=== PATIENT | female | born 1965 | race Caucasian/White ===

== ENCOUNTER 2017-11-30 08:46 | Emergency (ER) | payer BC ==
--- NOTE | 2017-11-30 09:25 | ED Physician Documentation ---
PD HPI FOCAL NEURO - Stated complaint Stated Complaint: FACIAL NUMBNESS - Chief complaint Chief Complaint: Neuro - History obtained from History obtained from: Patient - History of Present Illness Timing - onset: Yesterday Timing - details: Still present Severity of deficit: Mild Numbness: Face, Hand, Left Associated symptoms: Headache (mild retro-orbital). No: Nausea / vomiting, Head injury Baseline status: positive: A&OX3, ambulatory, indep Similar symptoms before: Has not had sx before - Additional information Additional information: The patient is a 52-year-old female who presents with left facial numbness that she first noticed when she awoke yesterday morning. She attributed it to sleeping on her face. However this morning she continues to have slight numbness on the left side of her face. She has also become aware of clumsiness with her left hand. This morning she dropped soap from her left hand while in the shower. She denies any difficulty speaking but has noticed mild difficulty formulating her thoughts. She denies any difficulty walking. On further review of systems she reports heartburn recently for which she has been using Tums. She reports some mild retro-orbital headache, and a feeling of fatigue. She denies fever, nausea or vomiting. She does report vague urinary discomfort over the past week. She denies history of similar symptoms in the past. Review of Systems Constitutional: reports: Fatigue. denies: Fever Eyes: denies: Decreased vision Ears: denies: Tinnitus/ringing Nose: denies: Congestion Throat: denies: Sore throat Cardiac: denies: Chest pain / pressure, Palpitations Respiratory: denies: Dyspnea, Cough GI: denies: Abdominal Pain, Nausea, Vomiting : reports: Dysuria Skin: denies: Rash Musculoskeletal: denies: Back pain, Extremity pain Neurologic: reports: Numbness, Headache. denies: Focal weakness PD PAST MEDICAL HISTORY - Past Medical History Cardiovascular: None Respiratory: Asthma Neuro: Head injury Endocrine/Autoimmune: None GI: Diverticulitis - Past Surgical History Other past surgical history: Diaphragmatic hernia repair - Present Medications Home Medications: Ambulatory Orders Medication Instructions Recorded Confirmed Cyclobenzaprine [Flexeril] 10 mg PO DAILY PM 11/30/17 Gabapentin 11/30/17 - Allergies Allergies/Adverse Reactions: Allergies Allergy/AdvReac Type Severity Reaction Status Date / Time No Known Drug Allergies Allergy Verified 11/30/17 09:00 - Social History Does the pt smoke?: No Smoking Status: Never smoker PD ED PE NORMAL - Vitals Vital signs reviewed: Yes (Mild hypertension initially.) - General General: Alert and oriented X 3, Well developed/nourished - HEENT HEENT: Atraumatic, PERRL, EOMI, Moist mucous membranes, Pharynx benign - Neck Neck: Supple, no meningeal sign, No adenopathy, No JVD - Cardiac Cardiac: RRR, No murmur - Respiratory Respiratory: No respiratory distress - Abdomen Abdomen: Soft, Non tender, Other (Rotund abdomen.) - Back Back: No CVA TTP - Derm Derm: No rash - Extremities Extremities: No edema, No calf tenderness / cord - Neuro Neuro: Alert and oriented X 3, No motor deficit, Normal speech, Other (Very mild decreased light touch sensation on the left side of the face, with sparing of the forehead. There is very mild decreased light touch sensation on the left hand compared to the right. No focal motor deficit detected.) Eye Opening: Spontaneous Motor: Obeys Commands Verbal: Oriented GCS Score: 15 NIHSS - Time Time: 09:10 - Level of Consciousness Level of consciousness: (0) Alert, Keenly responsive LOC Questions: (0) Answers both Q's correct LOC Commands: (0) Performs both correctly - Gaze Best Gaze: (0) Normal - Visual Visual: (0) No loss - Facial Palsy Facial Palsy: (0) Normal, symmetrical movement - Motor Arms (both separate) Motor Arm (right): (0) No drift Motor Arm (left): (0) No drift - Motor Legs (both separate) Motor Leg (right): (0) No drift Motor Leg (left): (0) No drift - Limb Ataxia Limb Ataxia: (0) Absent - Sensory Sensory: (1) Vovt-ca-xvlaoxky loss - Best Language Best Language: (0) No aphasia - Dysarthria Dysarthria: (0) Normal - Extinction and Inattention (formally neg Extinction and inattention: (0) No abnormality - Total Score/Results Total Score/Result: 1 Results - Vitals Vitals: Vital Signs - 24 hr 11/30/17 11:21 Heart Rate 81 Respiratory 18 Rate Blood Pressure 136/97 H O2 Saturation 100 Oxygen O2 Source Room air - Labs Labs: Laboratory Tests 11/30/17 11/30/17 11/30/17 09:10 09:38 09:38 WBC 6.5 RBC 5.43 H Hgb 15.3 Hct 43.2 MCV 79.6 L MCH 28.2 MCHC 35.5 RDW 13.3 Plt Count 337 MPV 7.4 L Neut # 4.0 Lymph # 1.8 [place] # 0.3 Eos # 0.1 Baso # 0.2 H Absolute Nucleated RBC 0.00 Nucleated RBC % 0.1 Sodium 138 Potassium 3.6 Chloride 100 L Carbon Dioxide 26 Anion Gap 12.0 BUN 11 Creatinine 0.6 Estimated GFR (MDRD) 105 Glucose 102 H Calcium 9.5 Total Bilirubin 0.6 AST 25 ALT 30 Alkaline Phosphatase 87 Total Protein 8.3 H Albumin 4.3 Globulin 4.0 Albumin/Globulin Ratio 1.1 Lipase 26 Urine Color YELLOW Urine Clarity CLEAR Urine pH 6.0 Ur Specific [place] 1.025 Urine Protein NEGATIVE Urine Glucose (UA) NEGATIVE Urine Ketones NEGATIVE Urine Occult Blood TRACE-INTA Urine Nitrite NEGATIVE Urine Bilirubin NEGATIVE Urine Urobilinogen 0.2 (NORMAL) Ur Leukocyte Esterase NEGATIVE Ur Microscopic Review NOT INDICATED Urine Culture Comments NOT INDICATED - Rads (name of study) Head CT Radiology: Prelim report reviewed, EMP read contemporaneously, See rad report ( Negative noncontrast brain CT. No intracranial hemorrhage, obvious mass, or CT signs of acute infarct.) PD MEDICAL DECISION MAKING - ED course Complexity details: reviewed old records, reviewed results, re-evaluated patient , considered differential, d/w patient ED course: The patient presents with mild left facial and upper extremity paresthesia that started more than 24 hours prior to arrival. Head CT reveals no intracranial abnormality, including no hemorrhage or mass effect. Interestingly, the patient 's symptoms cleared while in the emergency department. TIA versus CVA remains a consideration, but I think MS is a more likely consideration. In further discussion with the patient, she advises that MS has been considered by physicians in the past, and she has undergone workup for MS at [facility] in the past. Treatment in the emergency department included administration of one baby aspirin orally. I discussed with her the results of her workup, the importance of outpatient follow-up, and advised that she discuss further workup for MS with her primary physician. I also discussed with her potentially worrisome signs or symptoms that should prompt reevaluation in the department. Departure - Departure Disposition: 01 Home, Self Care Clinical Impression: Left facial numbness Condition: Stable Instructions: ED Paraesthesias Follow-Up: Aracely Gallo PA-C [Primary Care Provider] - Comments: Take 1 baby aspirin daily. Follow up with your primary physician. Call to schedule an appointment. Return to the emergency department if you develop increasing headache, increasing numbness or weakness, or otherwise worsening symptoms. Discharge Date/Time: 11/30/17 11:35
[2017-11-30 10:00] LABS: BASOPHILS # (AUTO) 0.2 10^3/uL (0.0-0.1); BASOPHILS % (AUTO) 3.1 %; EOSINOPHILS # (AUTO) 0.1 10^3/uL (0.0-0.7); EOSINOPHILS % (AUTO) 1.9 %; HGB - HEMOGLOBIN 15.3 g/dL (12.0-16.0); LYMPHOCYTES # (AUTO) 1.8 10^3/uL (1.5-3.5); LYMPHOCYTES % (AUTO) 28.2 %; MEAN CORPUSCULAR HEMOGLOBIN 28.2 pg (27.0-31.0); MEAN CORPUSCULAR HGB CONC 35.5 g/dL (32.0-36.0); MEAN CORPUSCULAR VOLUME 79.6 fL (81.0-99.0); MEAN PLATELET VOLUME 7.4 fL (7.9-10.8); MONOCYTES # (AUTO) 0.3 10^3/uL (0.0-1.0); MONOCYTES % (AUTO) 4.6 %; NEUTROPHILS % (AUTO) 62.2 %; PLT - PLATELET COUNT 337 10^3/uL (130-450); RED BLOOD COUNT 5.43 10^6/uL (4.20-5.40); RED CELL DISTRIBUTION WIDTH 13.3 % (12.0-15.0); WHITE BLOOD COUNT 6.5 x10^3/uL (4.8-10.8)
[2017-11-30 10:02] LABS: BILIRUBIN,URINE NEGATIVE (NEGATIVE); GLUCOSE, URINE (UA) NEGATIVE (NEGATIVE); KETONES,URINE (UA) NEGATIVE (NEGATIVE); LEUKOCYTE ESTERASE, URINE NEGATIVE (NEGATIVE); NITRITE,URINE NEGATIVE (NEGATIVE); OCCULT BLOOD,URINE TRACE-INTA (NEGATIVE); PROTEIN,URINE NEGATIVE (NEGATIVE); UROBILINOGEN,URINE 0.2 (NORMAL) E.U./dL (NORMAL)
[2017-11-30 10:04] LABS: CLARITY,URINE CLEAR (CLEAR)
[2017-11-30 10:14] LABS: ALBUMIN 4.3 g/dL (3.2-5.5); ALBUMIN/GLOBULIN RATIO 1.1 (1.0-2.2); BILIRUBIN,TOTAL 0.6 mg/dL (0.2-1.0); CALCIUM 9.5 mg/dL (8.5-10.3); CREATININE 0.6 mg/dL (0.4-1.0); TOTAL PROTEIN 8.3 g/dL (6.7-8.2)
--- NOTE | 2017-11-30 10:21 | CT Report ---
EXAM: CT HEAD EXAM DATE: 11/30/2017 10:00 AM. CLINICAL HISTORY: Left facial numbness. Disoriented and confused. COMPARISON: None. TECHNIQUE: Multiaxial CT images were obtained from the foramen magnum to the vertex. Reformats: Coron al. IV contrast: None. In accordance with CT protocol optimization, one or more of the following dose reduction techniques w ere utilized for this exam: automated exposure control, adjustment of mA and/or KV based on patient s ize, or use of iterative reconstructive technique. FINDINGS: Parenchyma: No intraparenchymal hemorrhage. No focal mass effect, midline shift, or CT findings of ac kimi infarction. Strauss-white differentiation is distinct. Extraaxial Spaces: Normal. No subdural or epidural collections identified. Ventricles: Normal in size and position. Tip cisterna magna, an anatomic variant. Sinuses and Orbits: Imaged paranasal sinuses, orbits, and mastoids show no significant abnormality. Bones: No evidence of fracture or calvarial defect. IMPRESSION: 1. Negative noncontrast brain CT. No intracranial hemorrhage, obvious mass, or CT signs of acute infa rct. [facility] Referring Provider Line: [phone] SITE ID: [id number]
[2017-11-30] MEDS ORDERED: ASPIRIN CHEW 81 MG TABLET PO STA (11:05)
[2017-11-30 11:22] VITALS: BP 136/97
== END 2017-11-30 11:35 | disposition home or self-care (01) ==
LOC: ED 08:46
DX: R20.0 Anesthesia of skin (principal); R51 Headache; J45.909 Unspecified asthma, uncomplicated
CPT/HCPCS: 36415; 70450; 80053; 81003; 83690; 85025; 99284; A9270; 81001; 87086

== ENCOUNTER 2017-12-12 10:08 | Outpatient (CLI) | payer BC ==
[2017-12-12 14:03] LABS: RHEUMATOID FACTOR NEGATIVE (Negative)
[2017-12-14 13:52] LABS: ANA SCREEN NEGATIVE (NEGATIVE)
== END 2017-12-12 10:09 | disposition home or self-care (01) ==
LOC: LAB.R 10:08
PROVIDERS: ATTEND Physician Assistant Medical
DX: M25.50 Pain in unspecified joint (principal)
CPT/HCPCS: 85651; 86038; 86140; 86430

== ENCOUNTER 2017-12-24 08:22 | Outpatient (CLI) | payer BC ==
--- NOTE | 2017-12-25 08:48 | Ultrasound Report ---
CAROTID DUPLEX: 12/24/2017 CLINICAL INDICATION: Paresthesias. TECHNIQUE: Real-time sonographic vascular imaging was performed by the roadability machine operator through the carotid arteries utilizing both color-flow and Doppler spectral analysis. Multiple retail wireless sales representative static images were saved for review. RIGHT Vessel PSV cm/sec EDV cm/sec ICA/CCA RSV Ratio Degree of Stenosis Plaque Estimate % RCCA Prox 64 RCCA Dist 94 30 RECA 74 RT BULB 56 26 0.59 BHAKTI Prox 61 20 0.64 BHAKTI Mid 57 26 0.60 BHAKTI Dist 112 49 1.19 RVA 58 RVA flow direction: Antegrade LEFT Vessel PSV cm/sec EDV cm/sec ICA/CCA RSV Ratio Degree of Stenosis Plaque Estimate % LCCA Prox 85 LCCA Dist 64 26 LECA --- LFT BULB 54 19 0.84 LICA Prox 74 38 1.15 LICA Mid 96 41 1.50 LICA Dist 97 42 1.51 LVA 56 LVA flow direction: Antegrade Velocity criteria are extrapolated from diameter data as defined by the Society of Radiologists in Ultrasound Consensus Conference Radiology 2003; 229; 340-346. Degree of Stenosis % ICA PSV cm/sec ICA EDV cm/sec ICA/CCA PSV Ratio Plaque Estimate % Normal < 125 < 40 < 2.0 None <50 < 125 <40 < 2.0 < 50 50-69 125-130 40-100 2.0-4.0 >/=50 >/=70 but less than near occlusion > 230 > 100 > 4.0 >/=50 Near occlusion High, low or undetectable Variable Variable Visible Total occlusion Undetectable Not applicable Not applicable No detectable lumen FINDINGS: RIGHT: There is mild plaquing in the right carotid bifurcation, without evidence of a focal hemodynamically significant stenosis. LEFT: There is moderate plaquing in the left carotid bifurcation. The left internal carotid artery is tortuous, but there is no evidence of a focal hemodynamically significant stenosis. Incidental note is made of occlusion of the left external carotid artery. The vertebral arteries demonstrate antegrade flow bilaterally. IMPRESSION: NO EVIDENCE OF A HEMODYNAMICALLY SIGNIFICANT INTERNAL CAROTID STENOSIS. MTDD
== END 2017-12-24 08:23 | disposition home or self-care (01) ==
LOC: DI 08:22
PROVIDERS: ATTEND Physician Assistant Medical
DX: R20.2 Paresthesia of skin (principal)
CPT/HCPCS: 93306; 93880

== ENCOUNTER 2018-11-07 15:35 | Outpatient (CLI) | payer BC ==
[2018-11-07 18:18] LABS: BASOPHILS # (AUTO) 0.1 10^3/uL (0.0-0.1); BASOPHILS % (AUTO) 0.7 %; BILIRUBIN,URINE NEGATIVE (NEGATIVE); EOSINOPHILS # (AUTO) 0.1 10^3/uL (0.0-0.7); EOSINOPHILS % (AUTO) 1.7 %; GLUCOSE, URINE (UA) NEGATIVE (NEGATIVE); HGB - HEMOGLOBIN 15.1 g/dL (12.0-16.0); KETONES,URINE (UA) NEGATIVE (NEGATIVE); LEUKOCYTE ESTERASE, URINE NEGATIVE (NEGATIVE); LYMPHOCYTES # (AUTO) 2.1 10^3/uL (1.5-3.5); LYMPHOCYTES % (AUTO) 28.3 %; MEAN CORPUSCULAR HEMOGLOBIN 28.3 pg (27.0-31.0); MEAN CORPUSCULAR VOLUME 85.7 fL (81.0-99.0); MEAN PLATELET VOLUME 7.9 fL (7.9-10.8); MONOCYTES # (AUTO) 0.4 10^3/uL (0.0-1.0); MONOCYTES % (AUTO) 4.9 %; NEUTROPHILS # (AUTO) 4.8 10^3/uL (1.5-6.6); NEUTROPHILS % (AUTO) 64.4 %; NITRITE,URINE NEGATIVE (NEGATIVE); OCCULT BLOOD,URINE TRACE-LYSE (NEGATIVE); PLT - PLATELET COUNT 352 10^3/uL (130-450); PROTEIN,URINE NEGATIVE (NEGATIVE); RED BLOOD COUNT 5.35 10^6/uL (4.20-5.40); RED CELL DISTRIBUTION WIDTH 13.6 % (12.0-15.0); UROBILINOGEN,URINE 0.2 (NORMAL) E.U./dL (NORMAL); WHITE BLOOD COUNT 7.4 x10^3/uL (4.8-10.8)
[2018-11-07 18:21] LABS: CLARITY,URINE CLEAR (CLEAR)
[2018-11-07 18:34] LABS: ALBUMIN 3.9 g/dL (3.2-5.5); ALKALINE PHOSPHATASE 83 IU/L (42-121); ALT ALANINE AMINOTRANSFERASE 20 IU/L (10-60); AST ASPARTATE AMINOTRANSFERASE 19 IU/L (10-42); BILIRUBIN,TOTAL 0.5 mg/dL (0.2-1.0); BUN - BLOOD UREA NITROGEN 13 mg/dL (6-20); CALCIUM 8.9 mg/dL (8.5-10.3); CARBON DIOXIDE - CO2 25 mmol/L (21-32); CHLORIDE 102 mmol/L (101-111); CREATININE 0.7 mg/dL (0.4-1.0); GFR - MDRD 87 (>89); GLUCOSE 115 mg/dL (70-100); SODIUM 135 mmol/L (135-145); TOTAL PROTEIN 7.7 g/dL (6.7-8.2)
[2018-11-07 18:47] LABS: THYROID STIMULATING HORMONE 1.95 uIU/mL (0.34-5.60)
[2018-11-07 18:49] LABS: FREE T4 (FREE THYROXINE) 0.7 ng/dL (0.58-1.64)
[2018-11-07 19:30] LABS: CRP - C-REACTIVE PROTEIN < 1.0 mg/dL (0-1.0)
[2018-11-08 12:36] LABS: HIV AG/AB 4TH GEN NON-REACTIVE (NON-REACTIVE)
[2018-11-08 13:32] LABS: HEPATITIS C ANTIBODY NON-REACTIVE (NON-REACTIVE)
[2018-11-09 13:25] LABS: ANA SCREEN NEGATIVE (NEGATIVE)
[2018-11-09 17:16] LABS: 18 KD (IGG) BAND NON-REACTIVE; 23 KD (IGG) BAND NON-REACTIVE; 23 KD (IGM) BLOT NON-REACTIVE; 28 KD (IGG) BAND NON-REACTIVE; 30 KD (IGG) BAND NON-REACTIVE; 39 KD (IGG) BAND NON-REACTIVE; 39 KD (IGM) BLOT NON-REACTIVE; 41 KD (IGG) BAND REACTIVE; 41 KD (IGM) BLOT REACTIVE; 45 KD (IGG) BAND NON-REACTIVE; 58 KD (IGG) BAND NON-REACTIVE; 66 KD (IGG) BAND NON-REACTIVE; 93 KD (IGG) BAND NON-REACTIVE
== END 2018-11-07 23:59 | disposition home or self-care (01) ==
LOC: LAB.R 15:35
PROVIDERS: ATTEND Physician Assistant Medical
DX: L29.9 Pruritus, unspecified (principal); Z20.9 Contact with and (suspected) exposure to unspecified communicable disease; R35.0 Frequency of micturition
CPT/HCPCS: 80053; 81001; 81003; 84439; 84443; 84481; 85025; 85651; 86038; 86140; 86617; 86803; 87086; 87389

== ENCOUNTER 2019-02-19 18:00 | Emergency (ER) | payer BC ==
[2019-02-19 18:35] LABS: BILIRUBIN,URINE NEGATIVE (NEGATIVE); CLARITY,URINE CLEAR (CLEAR); GLUCOSE, URINE (UA) NEGATIVE (NEGATIVE); KETONES,URINE (UA) NEGATIVE (NEGATIVE); LEUKOCYTE ESTERASE, URINE NEGATIVE (NEGATIVE); NITRITE,URINE NEGATIVE (NEGATIVE); OCCULT BLOOD,URINE TRACE-INTA (NEGATIVE); PROTEIN,URINE NEGATIVE (NEGATIVE); UROBILINOGEN,URINE 0.2 (NORMAL) E.U./dL (NORMAL)
[2019-02-19] MEDS ORDERED: ONDANSETRON 4 MG/2 ML VIAL IVP STA (18:45)
[2019-02-19] MEDS ORDERED: SODIUM CHLORIDE 0.9% 1,000 ML IV ONE (18:45)
[2019-02-19] MEDS ORDERED: HYDROmorphone 1 MG/ML CARPUJECT IVP STA (18:45)
[2019-02-19] MEDS ORDERED: PANTOPRAZOLE 40 MG VIAL IVP STA (18:46)
--- NOTE | 2019-02-19 18:47 | ED Physician Documentation ---
PD HPI ABD PAIN - Stated complaint Stated Complaint: ABD PX - Chief complaint Chief Complaint: Abd Pain - History obtained from History obtained from: Patient - History of Present Illness Timing - onset: Other (53-year-old woman with history of remote diaphragmatic hernia repair with mesh became ill 5 days ago with vomiting and later diarrhea. Her subsequently became ill with a GI illness 2 days later. Her illness got better 2 days ago but then developed into more of a bloating with foul- smelling urine, on stools that were gritty and left flank pain. There is no associated fevers or chills. She is slightly nauseous. She also has some upper abdominal pain, she thinks because she has not been able to keep her PPI down.) Review of Systems Ten Systems: 10 systems reviewed and negative Constitutional: denies: Fever, Chills Cardiac: denies: Chest pain / pressure, Palpitations Respiratory: denies: Dyspnea, Cough GI: reports: Abdominal Pain, Nausea, Vomiting, Diarrhea. denies: Hematemesis, Bloody / black stool PD PAST MEDICAL HISTORY - Past Medical History Cardiovascular: None Respiratory: Asthma Endocrine/Autoimmune: None GI: Diverticulitis : None HEENT: None Psych: None Musculoskeletal: None - Past Surgical History Past Surgical History: Yes General: Hiatal hernia repair - Present Medications Home Medications: Ambulatory Orders Medication Instructions Recorded Confirmed Cyclobenzaprine [Flexeril] 10 mg PO DAILY PM 11/30/17 Gabapentin 11/30/17 Ciprofloxacin HCl [Cipro] 500 mg PO BID #20 tablet 02/19/19 Fluconazole [Diflucan] 150 mg PO ONCE PRN #1 tablet 02/19/19 Metronidazole [Flagyl] 500 mg PO TID #30 tablet 02/19/19 Ondansetron Odt [Zofran] 4 mg TL Q6H PRN #10 tablet 02/19/19 Oxycodone HCl/Acetaminophen 1 - 2 each PO Q6H PRN #14 tablet 02/19/19 [Percocet 5-325 mg Tablet] - Allergies Allergies/Adverse Reactions: Allergies Allergy/AdvReac Type Severity Reaction Status Date / Time No Known Drug Allergies Allergy Verified 11/30/17 09:00 - Social History Does the pt smoke?: No Smoking Status: Never smoker Does the pt drink ETOH?: Yes Does the pt have substance abuse?: No PD ED PE NORMAL - Vitals Vital signs reviewed: Yes - General General: Alert and oriented X 3, No acute distress - Neck Neck: Supple, no meningeal sign, No bony TTP - Cardiac Cardiac: RRR, No murmur - Respiratory Respiratory: No respiratory distress, Clear bilaterally - Abdomen Abdomen: Normal bowel sounds, Soft, Other (Mild left-sided abdominal tenderness without surgical signs. No significant left flank tenderness but she points to the left flank is 1 of the sites of pain.) - Derm Derm: Normal color, Warm and dry - Extremities Extremities: No edema, No calf tenderness / cord - Neuro Neuro: Alert and oriented X 3, Normal speech Results - Vitals Vitals: Vital Signs - 24 hr 02/19/19 02/19/19 02/19/19 18:12 19:11 19:58 Temperature 36.3 C L Heart Rate 93 87 92 Respiratory 14 16 16 Rate Blood Pressure 143/86 H 128/80 133/78 H O2 Saturation 100 97 100 02/19/19 20:47 Temperature Heart Rate 87 Respiratory 18 Rate Blood Pressure 118/83 H O2 Saturation 98 Oxygen O2 Source Room air - Labs Labs: Laboratory Tests 02/19/19 02/19/19 02/19/19 18:23 19:00 19:00 WBC 9.0 RBC 4.90 Hgb 13.7 Hct 41.5 MCV 84.8 MCH 28.0 MCHC 33.1 RDW 13.7 Plt Count 345 MPV 7.2 L Neut # (Auto) 6.3 Lymph # (Auto) 1.8 [place] # (Auto) 0.7 Eos # (Auto) 0.1 Baso # (Auto) 0.1 Absolute Nucleated RBC 0.00 Nucleated RBC % 0.0 Sodium 136 Potassium 3.6 Chloride 101 Carbon Dioxide 29 Anion Gap 6.0 BUN 11 Creatinine 0.5 Estimated GFR (MDRD) 129 Glucose 91 Calcium 8.7 Total Bilirubin 0.5 AST 24 ALT 29 Alkaline Phosphatase 74 Total Protein 7.1 Albumin 3.6 Globulin 3.5 Albumin/Globulin Ratio 1.0 Lipase 39 Urine Color YELLOW Urine Clarity CLEAR Urine pH 7.0 Ur Specific [place] 1.010 Urine Protein NEGATIVE Urine Glucose (UA) NEGATIVE Urine Ketones NEGATIVE Urine Occult Blood TRACE-INTA Urine Nitrite NEGATIVE Urine Bilirubin NEGATIVE Urine Urobilinogen 0.2 (NORMAL) Ur Leukocyte Esterase NEGATIVE Ur Microscopic Review NOT INDICATED Urine Culture Comments NOT INDICATED - Rads (name of study) CT AP Radiology: EMP read contemporaneously PD MEDICAL DECISION MAKING - ED course ED course: This is a 53-year-old woman had a prodrome of a viral GI illness but now with more pain and left-sided abdominal tenderness. Workup demonstrates uncomplicated diverticulitis for which she was treated with Cipro and Flagyl and was feeling much better after meds here. Departure - Departure Disposition: 01 Home, Self Care Clinical Impression: Sigmoid diverticulitis Condition: Good Record reviewed to determine appropriate education?: Yes Instructions: ED Diverticulitis Prescriptions: Ciprofloxacin HCl [Cipro] 500 mg PO BID #20 tablet Fluconazole [Diflucan] 150 mg PO ONCE PRN #1 tablet PRN Reason: yeast infection Metronidazole [Flagyl] 500 mg PO TID #30 tablet Ondansetron Odt [Zofran] 4 mg TL Q6H PRN #10 tablet PRN Reason: Nausea / Vomiting Oxycodone HCl/Acetaminophen [Percocet 5-325 mg Tablet] 1 - 2 each PO Q6H PRN #14 tablet PRN Reason: pain Comments: Do not drink alcohol while on the antibiotics. Return if worse. Follow-up with your surgeon on Sunday as scheduled. Return for new or worsening symptoms. If you have not had a recent colonoscopy you will need one in 8+ weeks after all y our symptoms are better. Do not drink or drive while taking narcotic pain medication. Note that many narcotic pain relievers also contain Tylenol/acetaminophen. Please ensure that your total dose of acetaminophen from all sources does not exceed 3 g (3000 mg) per day. You may get constipated while on this medication. Take a stool softener such as Colace twice a day while you are on it. Also add an gcxy-ipc-shzrxft laxative such as senna or MiraLAX on any day that you do not have a bowel movement. If you received a narcotic pain medication or sedative while in the emergency department, do not drive for the next 24 hours.
[2019-02-19] MEDS ORDERED: IOVERSOL 320 100 ML VIAL IVP ONE ×2 (18:54→19:54)
[2019-02-19 19:13] LABS: BASOPHILS # (AUTO) 0.1 10^3/uL (0.0-0.1); BASOPHILS % (AUTO) 0.6 %; EOSINOPHILS # (AUTO) 0.1 10^3/uL (0.0-0.7); EOSINOPHILS % (AUTO) 0.9 %; HGB - HEMOGLOBIN 13.7 g/dL (12.0-16.0); LYMPHOCYTES # (AUTO) 1.8 10^3/uL (1.5-3.5); LYMPHOCYTES % (AUTO) 20.4 %; MEAN CORPUSCULAR HGB CONC 33.1 g/dL (32.0-36.0); MEAN CORPUSCULAR VOLUME 84.8 fL (81.0-99.0); MEAN PLATELET VOLUME 7.2 fL (7.9-10.8); MONOCYTES # (AUTO) 0.7 10^3/uL (0.0-1.0); MONOCYTES % (AUTO) 7.8 %; NEUTROPHILS # (AUTO) 6.3 10^3/uL (1.5-6.6); NEUTROPHILS % (AUTO) 70.3 %; PLT - PLATELET COUNT 345 10^3/uL (130-450); RED CELL DISTRIBUTION WIDTH 13.7 % (12.0-15.0)
[2019-02-19 19:26] LABS: ALBUMIN 3.6 g/dL (3.2-5.5); BILIRUBIN,TOTAL 0.5 mg/dL (0.2-1.0); CALCIUM 8.7 mg/dL (8.5-10.3); CREATININE 0.5 mg/dL (0.4-1.0); TOTAL PROTEIN 7.1 g/dL (6.7-8.2)
[2019-02-19] MEDS ORDERED: MAG HYDROX/AL HYDROX/SIMETH 30 ML UDC PO STA (19:36)
[2019-02-19] MEDS ORDERED: LIDOCAINE VISCOUS 2% 15 ML UDC MM STA (19:36)
--- NOTE | 2019-02-19 20:23 | CT Report ---
Reason: IV only LLQ pain Procedure Date: 02/19/2019 Accession Number: [id number] / [id number] Procedure: CT - Abdomen/Pelvis W CPT Code: FULL RESULT: EXAM: CT ABDOMEN AND PELVIS EXAM DATE: 02/19/2019 07:56 PM. CLINICAL HISTORY: Left lower quadrant pain. COMPARISONS: None. TECHNIQUE: Routine helical CT imaging was performed through the abdomen and pelvis. IV contrast: 100 cc of Optiray 320. Enteric contrast: No. Reconstructions: Coronal and sagittal. In accordance with CT protocol optimization, one or more of the following dose reduction techniques were utilized for this exam: automated exposure control, adjustment of mA and/or KV based on patient size, or use of iterative reconstructive technique. FINDINGS: Lung Bases: Evidence of posterior left diaphragm repair. Liver: Normal. No masses. Gallbladder/Bile Ducts: Cholecystectomy. No dilated that. Spleen: Normal. Pancreas: Normal. Adrenal Glands: Normal. Kidneys: Normal. No masses or hydronephrosis. Peritoneal Cavity/Bowel: Diverticulosis, with wall thickening and adjacent fat stranding of the lower sigmoid colon. No adjacent abscess or extraluminal air. No free fluid, free air or adenopathy. No masses. The appendix is well visualized and normal. Pelvic Organs: Hysterectomy. Unremarkable bladder. Vasculature: No aneurysms or other significant abnormality. Bones: No significant abnormality. Other: None. IMPRESSION: Uncomplicated lower sigmoid diverticulitis. [facility]
[2019-02-19] MEDS ORDERED: metroNIDAZOLE 250 MG TABLET PO STA (20:36)
[2019-02-19] MEDS ORDERED: CIPROFLOXACIN 250 MG TABLET PO STA (20:36)
[2019-02-19] MEDS ORDERED: oxyCODONE/ACET 5/325 Prepack 4 PO STA (20:36)
[2019-02-19] MEDS ORDERED: ONDANSETRON ODT 4 MG Prepack 2 TL STA (20:36)
[2019-02-19 20:48] VITALS: BP 118/83
== END 2019-02-19 20:51 | disposition home or self-care (01) ==
LOC: ED 18:00
DX: K57.32 Diverticulitis of large intestine without perforation or abscess without bleeding (principal)
CPT/HCPCS: 36415; 74177; 80053; 81003; 83690; 85025; 96361; 96374; 96375; 99283; 99284; A9270; J1170; Q9967; 81001; 87086

== ENCOUNTER 2021-08-01 09:58 | Outpatient (CLI) | payer BC ==
--- NOTE | 2021-08-01 11:44 | XRAY Report ---
PROCEDURE: Ankle 3 View LT INDICATIONS: NONDISPLACED OBLIQUE FX OF SHAFT OF L FIBULA TECHNIQUE: 3 views of the ankle were acquired. COMPARISON: None FINDINGS: There is a thin linear band of sclerosis in the distal fibular metaphysis, consistent with a healed r emote fracture. No other fracture identified. The ankle mortise is congruent and maintained. Regional soft tissues unremarkable. No ankle effusion. IMPRESSION: Remote healed fracture of the distal fibular metaphysis. Reviewed by: Chris Wyatt MD on 08/01/2021 11:43 AM PDT Approved by: Chris Wyatt MD on 08/01/2021 11:43 AM PDT Station ID: [id number]
== END 2021-08-01 23:59 | disposition home or self-care (01) ==
LOC: DI.N 09:58
PROVIDERS: ATTEND Orthopaedic Surgery
DX: S82.435A Nondisplaced oblique fracture of shaft of left fibula, initial encounter for closed fracture (principal)

== ENCOUNTER 2021-09-01 10:57 | Outpatient (CLI) | payer BC ==
--- NOTE | 2021-09-08 10:04 | XRAY Report ---
PROCEDURE: Tib/Fib LT INDICATIONS: FRACTURE OF SHAFT OF LEFT FIBULA TECHNIQUE: 2 views of the tibia and fibula were acquired. COMPARISON: None FINDINGS: Bones: Impacted, mildly comminuted, nondisplaced fracture of the proximal fibular metaphysis. Small a mount of bridging callus is seen. The tibiofibular alignment appears normal. No other fractures. No s uspicious bony lesions. Soft tissues: No suspicious soft tissue calcifications or masses. IMPRESSION: Subacute, nondisplaced proximal fibular metaphyseal fracture. Reviewed by: Sarah Cevallos MD on 09/08/2021 10:02 AM PDT Approved by: Sarah Cevallos MD on 09/08/2021 10:02 AM PDT Station ID: [id number]
== END 2021-09-01 10:58 | disposition home or self-care (01) ==
LOC: DI.N 10:57
PROVIDERS: ATTEND Orthopaedic Surgery
DX: S82.435A Nondisplaced oblique fracture of shaft of left fibula, initial encounter for closed fracture (principal)

== ENCOUNTER 2022-03-19 08:00 | Outpatient (CLI) | payer BC ==
--- NOTE | 2022-03-19 15:22 | XRAY Report ---
PROCEDURE: Chest 2 View X-Ray INDICATIONS: CHRONIC COUGH TECHNIQUE: 2 view(s) of the chest. COMPARISON: None. FINDINGS: Surgical changes and devices: Cholecystectomy clips can be seen on the lateral view. Lungs and pleura: No pleural effusions or pneumothorax. Lungs are clear. Mediastinum: Mediastinal contours are normal. Heart size is normal. Bones and chest wall: No suspicious bony abnormalities. There is accentuated thoracic kyphosis. Ag e-appropriate degenerative changes are seen. Soft tissues appear unremarkable. IMPRESSION: Clear lungs, without infiltrates. Postoperative and degenerative changes are seen. Reviewed by: Jaden Manning MD on 03/19/2022 2:21 PM GABE Approved by: Jaden Manning MD on 03/19/2022 2:21 PM GABE Station ID: [id number]
== END 2022-03-19 23:59 | disposition home or self-care (01) ==
LOC: DI.S 08:00 → MERGE 08:00 → DI.S 23:59
PROVIDERS: ATTEND Physician Assistant
DX: R05.3 Chronic cough (principal)

== ENCOUNTER 2023-02-02 21:34 | Emergency (ER) | payer BC ==
[2023-02-02 22:03] LABS: BASOPHILS # (AUTO) 0.1 10^3/uL (0.0-0.1); EOSINOPHILS # (AUTO) 0.2 10^3/uL (0.0-0.7); EOSINOPHILS % (AUTO) 1.9 %; HCT - HEMATOCRIT 43.5 % (37.0-47.0); HGB - HEMOGLOBIN 14.2 g/dL (12.0-16.0); LYMPHOCYTES % (AUTO) 31.6 %; MEAN CORPUSCULAR HEMOGLOBIN 28.2 pg (27.0-31.0); MEAN CORPUSCULAR HGB CONC 32.6 g/dL (32.0-36.0); MEAN CORPUSCULAR VOLUME 86.3 fL (81.0-99.0); MEAN PLATELET VOLUME 9.2 fL (7.9-10.8); MONOCYTES # (AUTO) 0.6 10^3/uL (0.0-1.0); MONOCYTES % (AUTO) 6.5 %; NEUTROPHILS # (AUTO) 5.6 10^3/uL (1.5-6.6); NEUTROPHILS % (AUTO) 58.8 %; PLT - PLATELET COUNT 328 10^3/uL (130-450); RED BLOOD COUNT 5.04 10^6/uL (4.20-5.40); RED CELL DISTRIBUTION WIDTH 13.1 % (12.0-15.0); WHITE BLOOD COUNT 9.4 x10^3/uL (4.8-10.8)
--- NOTE | 2023-02-02 22:16 | ED Physician Documentation ---
PD HPI CHEST PAIN - Stated complaint Stated Complaint: RT HEAD&CHEST PX - Chief complaint Chief Complaint: Cardiac - History obtained from History obtained from: Patient - Additional information Additional information: HPI from patient. Patient c/o sudden onset epigastric pain, waxing and waning without exacerbating nor ameliorating factors. Onset was 7:30 PM tonight. Denies h/o similar symptoms. Pain does not radiate Review of Systems Cardiac: reports: Chest pain / pressure (low chest/epigastric). denies: Palpitations, Pedal edema, Calf pain Respiratory: reports: Reviewed and negative GI: reports: Abdominal Pain (epigastric/low chest) PD PAST MEDICAL HISTORY - Past Medical History Past Medical History: Yes Cardiovascular: None Respiratory: Asthma Endocrine/Autoimmune: None GI: Diverticulitis : None HEENT: None Psych: None Musculoskeletal: None - Past Surgical History Past Surgical History: Yes General: Hiatal hernia repair - Present Medications Home Medications: Ambulatory Orders Medication Instructions Recorded Confirmed Pantoprazole Sodium 20 mg PO DAILY 02/02/23 02/02/23 Sucralfate [Carafate] 1 gm PO ACHS #60 tablet 02/02/23 - Allergies Allergies/Adverse Reactions: Allergies Allergy/AdvReac Type Severity Reaction Status Date / Time No Known Drug Allergies Allergy Verified 04/13/22 12:52 - Social History Does the pt smoke?: No Smoking Status: Never smoker Does the pt drink ETOH?: Yes Does the pt have substance abuse?: No - POLST Patient has POLST: No PD ED PE NORMAL - Vitals Vital signs reviewed: Yes - General General: Alert and oriented X 3, No acute distress, Well developed/nourished - HEENT HEENT: Moist mucous membranes - Cardiac Cardiac: RRR, No murmur, No gallop, No rub - Respiratory Respiratory: No respiratory distress, Clear bilaterally - Abdomen Abdomen: Normal bowel sounds, Soft, Non tender, Non distended - Extremities Extremities: No edema Results - Vitals Vitals: Oxygen O2 Source Room air - EKG (time done) No standard instances EKG releavant findings:: EKG personally interpreted by author of this note. Relevant findings are: Rate: Rate (enter#) (93) Rhythm: NSR [place]: LAD Intervals: Normal AK QRS: LVH Ischemia: Normal ST segments, Q waves (III, aVF) Other comments: Other comments (early R transition) Compare to prior EKG: Unchanged from prior EKG (04/13/22) - Labs Labs: Laboratory Tests 02/02/23 02/02/23 02/02/23 22:01 22:01 22:01 WBC 9.4 RBC 5.04 Hgb 14.2 Hct 43.5 MCV 86.3 MCH 28.2 MCHC 32.6 RDW 13.1 Plt Count 328 MPV 9.2 Neut # (Auto) 5.6 Lymph # (Auto) 3.0 [place] # (Auto) 0.6 Eos # (Auto) 0.2 Baso # (Auto) 0.1 Absolute Nucleated RBC 0.00 Nucleated RBC % 0.0 Sodium 140 Potassium 3.4 L Chloride 103 Carbon Dioxide 29 Anion Gap 8.0 BUN 19 Creatinine 0.6 Estimated GFR (MDRD) 103 Glucose 146 H Calcium 9.1 Total Bilirubin 0.3 AST 19 ALT 25 Alkaline Phosphatase 71 Troponin I High Sens 2.5 Total Protein 7.5 Albumin 3.7 Globulin 3.8 Albumin/Globulin Ratio 1.0 Lipase 44 PD Medical Decision Making - ED course Complexity details: reviewed results, re-evaluated patient, considered differential ED course: presents with epigastric/low chest pain. Tests ordered and results reviewed by me: CBC, ER abdominal panel, hs-cTn, EKG, chest xray. There are no concerning nor diagnostic findings on these tests. Minimal hypokalemia noted (3.4). EKG without significant change compared to previous (04/13/22). Etiology of symptoms is not apparent at this time. Differential includes, though not limited to, angina, GERD, PUD. Results d/w patient, return precautions reviewed. Carafate e- prescribed to [facility] in [place]. Departure - Departure Disposition: Home, Self Care Clinical Impression: Chest pain Condition: Good Instructions: ED Chest Pain Atypical Unkn Cause Prescriptions: Sucralfate [Carafate] 1 gm PO ACHS #60 tablet Comments: There were no concerning nor diagnostic findings on any of the test performed tonight (blood tests including a cardiac blood test, EKG, chest x-ray). As we discussed, your EKG did have a finding that would be consistent with a prior/previous heart attack, but this was also noted on the previous EKG from April 13, 2022 (thus confirming that this is not a new finding and, furthermore, would not account for your symptoms at this time). The cause of your symptoms is not apparent at this time. Follow-up with your primary care provider for reevaluation; further testing might be indicated even if the symptoms do not recur. Certainly, you can always return to the emergency department if the symptoms return. As we discussed, the location of the pain could suggest a stomach problem such as gastritis or ulcer. I have electronically submitted a prescription for a medication called Carafate to the [facility] in [place]. This medication helps coat the stomach and protect it from the acid; it can be helpful if other, more common acid blockers (such as the pantoprazole that you are already taking) are not controlling symptoms adequately. Realize that I am not diagnosing a stomach issue as the cause of your pain, but it is reasonable to try this medication to see if it helps prevent further such episodes. Discharge Date/Time: 02/02/23 23:31
[2023-02-02 22:17] LABS: ALBUMIN 3.7 g/dL (3.2-5.5); BILIRUBIN,TOTAL 0.3 mg/dL (0.2-1.0); CALCIUM 9.1 mg/dL (8.5-10.3); CREATININE 0.6 mg/dL (0.4-1.0); POTASSIUM 3.4 mmol/L (3.5-5.0); TOTAL PROTEIN 7.5 g/dL (6.7-8.2)
--- NOTE | 2023-02-02 22:33 | XRAY Report ---
PROCEDURE: Chest 1 View X-Ray INDICATIONS: Chest pain TECHNIQUE: One view of the chest was acquired. COMPARISON: Chest x-ray 04/13/2022. FINDINGS: Surgical changes and devices: None. Lungs and pleura: No pleural effusions or pneumothorax. Lungs are clear. Mediastinum: Mediastinal contours appear normal. Heart size is normal. Bones and chest wall: No suspicious bony lesions. Overlying soft tissues appear unremarkable. IMPRESSION: 1. No acute cardiopulmonary disease. Reviewed by: Doni Cunningham MD on 02/02/2023 10:32 PM PDT Approved by: Doni Cunningham MD on 02/02/2023 10:32 PM PDT Station ID: [id number]
[2023-02-02 23:29] VITALS: BP 146/99
== END 2023-02-02 23:31 | disposition home or self-care (01) ==
LOC: ED 21:34
DX: R07.9 Chest pain, unspecified (principal)
CPT/HCPCS: 36415; 80053; 83690; 84484; 85025; 93005; 99284

== ENCOUNTER → 2023-02-19 14:19 | Outpatient (CLI) | payer BC ==
--- NOTE | 2023-02-19 10:02 | XRAY Report ---
PROCEDURE: Knee 4 View RT INDICATIONS: RIGHT KNEE PAIN TECHNIQUE: 4 views of the right knee(s) were acquired. COMPARISON: None. FINDINGS: Bones: No fractures or dislocations. No suspicious bony lesions. Definite osteophytes and possibl e narrowing of joint space of the tibial femoral joint spaces. Soft tissues: No knee joint effusion. No suspicious soft tissue calcifications or masses. 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 This is of the tibiofemora l joint spaces. Reviewed by: Wang Campbell on 02/19/2023 10:01 AM PDT Approved by: Wang Campbell on 02/19/2023 10:01 AM PDT Station ID: [id number]
== END | disposition home or self-care (01) ==
LOC: DI.WOS 14:19
PROVIDERS: ATTEND Orthopaedic Surgery
DX: M17.11 Unilateral primary osteoarthritis, right knee (principal)